=== PATIENT | female | born 1950 | race Caucasian/White ===

== ENCOUNTER 2021-01-02 13:25 | Inpatient (IN) | payer MEDICARE, MEDICAID ==
[~2021-01-02] VITALS: Ht 162.6 cm; Wt 66.8 kg
[2021-01-02] MEDS ORDERED: dexamethasone 4mg/ml inj IV ONE (14:50)
[2021-01-02 15:47] LABS: EOSINOPHILS % (AUTO) 0 % (0-6); HEMATOCRIT 49.8 % (35.0-45.0); LYMPHOCYTES # (AUTO) 0.7 X10'3 (1.1-4.8); MEAN PLATELET VOLUME 9.6 FL (7.4-10.4); MONOCYTES # (AUTO) 0.5 X10'3 (0-0.9); WHITE BLOOD COUNT 5.6 X10'3 (4.5-11.0)
[2021-01-02 15:49] LABS: BASOPHILS % (AUTO) 0.2 % (0-1); HEMOGLOBIN 17.3 g/dl (12.0-16.0); LYMPHOCYTES % (AUTO) 12.8 % (21-51); MEAN CORPUSCULAR HEMOGLOBIN 30.5 PG (27.0-31.0); MEAN CORPUSCULAR HGB CONC 34.7 g/dL (33.0-36.5); MEAN CORPUSCULAR VOLUME 87.8 FL (78-98); MONOCYTES % (AUTO) 9.5 % (2-12); NEUTROPHILS # (AUTO) 4.3 X10'3 (1.8-7.7); NEUTROPHILS % (AUTO) 77.5 % (42-75); PLATELET COUNT 143 X10'3 (140-440); RED BLOOD COUNT 5.68 X10'6 (4.20-5.60); RED CELL DISTRIBUTION WIDTH 14.4 % (11.5-14.5)
[2021-01-02 15:55] LABS: D-DIMER 2.79 MG/L FEU (0-0.50)
[2021-01-02 16:12] LABS: ALANINE AMINOTRANSFERASE 45 U/L (12-78); ALBUMIN 3.1 G/DL (3.4-5.0); ALBUMIN/GLOBULIN RATIO 0.8 (1.1-1.5); ALKALINE PHOSPHATASE 100 IU/L (46-116); ANION GAP 15 (8-16); ASPARTATE AMINO TRANSFERASE 99 U/L (10-37); BILIRUBIN,TOTAL 0.4 MG/DL (0.1-1.0); BLOOD UREA NITROGEN 24 MG/DL (7-18); BUN/CREATININE RATIO 22.6 (6.6-38.0); CHLORIDE 94 MMOL/L (99-107); CREATININE 1.06 MG/DL (0.40-0.90); GLUCOSE 120 MG/DL (70-104); SODIUM 127 MMOL/L (135-145); TOTAL CARBON DIOXIDE 18.5 MMOL/L (24-32); TOTAL PROTEIN 7.2 G/DL (6.4-8.2); eGFR 51 ML/MIN
[2021-01-02 16:17] LABS: C-REACTIVE PROTEIN 4.06 MG/DL (0.0-0.5); LACTATE DEHYDROGENASE 820 U/L (81-234)
[2021-01-02] MEDS ORDERED: iohexol 350MG/ML 100ml bottle IV ONE (16:46)
[2021-01-02] MEDS ORDERED: REMDESIVIR INJ 200 MG in normal saline 100ml IV soln 60 ML IV ONE (18:16)
[2021-01-02] MEDS ORDERED: temazepam 15mg capsule PO PRN (21:00)
[2021-01-02] MEDS ORDERED: normal saline 1000ml 1,000 ML IV ONE (21:05)
[2021-01-02] MEDS ORDERED: magnesium hydroxide 30ml (MOM) UD suspension PO PRN (22:20)
[2021-01-02] MEDS ORDERED: HYDROmorphone inj. 0.5 MG/0.5 ML DISP.SYRIN IV PRN (22:20)
[2021-01-02] MEDS ORDERED: diphenhydrAMINE 25mg capsule PO PRN (22:20)
[2021-01-02] MEDS ORDERED: ondansetron/PF 4mg/2ml inj IV PRN (22:20)
[2021-01-02] MEDS ORDERED: acetaminophen 650mg rectal suppository RC PRN (22:20)
[2021-01-02] MEDS ORDERED: acetaminophen 325mg tablet PO PRN ×2 (22:20)
[2021-01-02] MEDS ORDERED: ondansetron 4mg rapidly disintigrating tab PO PRN (22:20)
[2021-01-02] MEDS ORDERED: diphenhydrAMINE 50 mg/ml inj IV PRN (22:20)
[2021-01-02] MEDS ORDERED: morphine 2 MG/ML inj. syringe IV PRN ×2 (22:20)
[2021-01-02] MEDS ORDERED: mag hydrox/Alum hydrox/simeth 30ml oral suspension PO PRN (22:20)
[2021-01-02] MEDS ORDERED: HYDROcodone/acetaminophen 10/325mg tab PO PRN (22:20)
[2021-01-02] MEDS ORDERED: bisacodyl 10mg suppository rectal RC PRN (22:20)
[2021-01-02] MEDS ORDERED: HYDROcodone/acetaminophen 5mg/325mg tablet PO PRN (22:20)
[2021-01-02] MEDS ORDERED: ALBUTEROL INHALER 1 PUFF/90 MCG INHALER IH PRN (22:25)
[2021-01-02] MEDS ORDERED: NO HOME MEDS PO (22:28)
[2021-01-02 22:43] LABS: HEMOGLOBIN A1C 5.9 % (4.5-6.2)
[2021-01-02 22:52] LABS: CREATINE KINASE 316 U/L (26-192); LIPASE 469 U/L (73-393); MAGNESIUM 1.9 MG/DL (1.5-2.4); PHOSPHORUS 2.3 MG/DL (2.3-4.5)
[2021-01-03] MEDS: normal saline 1000ml 1,000 ML IV SCH ×2 (00:09→11:45)
[2021-01-03 04:35] LABS: BASOPHILS % (AUTO) 0.4 % (0-1); EOSINOPHILS % (AUTO) 0 % (0-6); HEMATOCRIT 45.9 % (35.0-45.0); LYMPHOCYTES # (AUTO) 0.5 X10'3 (1.1-4.8); MEAN CORPUSCULAR VOLUME 90.4 FL (78-98); MONOCYTES # (AUTO) 0.3 X10'3 (0-0.9); NEUTROPHILS # (AUTO) 1.2 X10'3 (1.8-7.7); RED BLOOD COUNT 5.08 X10'6 (4.20-5.60); WHITE BLOOD COUNT 2.1 X10'3 (4.5-11.0)
[2021-01-03 04:37] LABS: HEMOGLOBIN 15.3 g/dl (12.0-16.0); LYMPHOCYTES % (AUTO) 24.4 % (21-51); MEAN CORPUSCULAR HEMOGLOBIN 30.1 PG (27.0-31.0); MEAN CORPUSCULAR HGB CONC 33.3 g/dL (33.0-36.5); MEAN PLATELET VOLUME 9.4 FL (7.4-10.4); MONOCYTES % (AUTO) 16.1 % (2-12); NEUTROPHILS % (AUTO) 59.1 % (42-75); PLATELET COUNT 126 X10'3 (140-440)
[2021-01-03 04:45] LABS: ALANINE AMINOTRANSFERASE 44 U/L (12-78); ALBUMIN 2.5 G/DL (3.4-5.0); ALBUMIN/GLOBULIN RATIO 0.7 (1.1-1.5); ALKALINE PHOSPHATASE 91 IU/L (46-116); ANION GAP 12 (8-16); ASPARTATE AMINO TRANSFERASE 78 U/L (10-37); BILIRUBIN,TOTAL 0.3 MG/DL (0.1-1.0); BLOOD UREA NITROGEN 29 MG/DL (7-18); BUN/CREATININE RATIO 29.6 (6.6-38.0); CALCIUM 7.4 MG/DL (8.5-10.1); CHLORIDE 100 MMOL/L (99-107); CHOL/HDL RATIO 3.7 (0.00-4.99); CHOLESTEROL 84 MG/DL (0-200); CREATININE 0.98 MG/DL (0.40-0.90); GLUCOSE 128 MG/DL (70-104); HDL CHOLESTEROL 23 MG/DL (35-60); LDL CHOLESTEROL 45 MG/DL (50-100); PARTIAL THROMBOPLASTIN TIME 31 SECONDS (22-32); POTASSIUM 3.8 MMOL/L (3.5-5.1); SODIUM 134 MMOL/L (135-145); TOTAL CARBON DIOXIDE 21.9 MMOL/L (24-32); TOTAL PROTEIN 6.2 G/DL (6.4-8.2); TRIGLYCERIDES 102 MG/DL (20-135); eGFR 56 ML/MIN
[2021-01-03 05:15] LABS: TOTAL CELLS COUNTED 100
[2021-01-03 05:16] LABS: GIANT PLATELET FEW; PLATELET ESTIMATE DECREASED
--- NOTE | 2021-01-03 07:30 | NUR ---
Patient in room COVID 06. I have received report from Darlene Rn and had the opportunity to ask questions and assume patient care.
[2021-01-03 08:07] VITALS: BP 121/58
[2021-01-03] MEDS: dexamethasone inj 6 MG in normal saline 50ml IV soln 50 ML IV SCH ×2 (08:55→20:53)
[2021-01-03] MEDS: docusate sod 100mg capsule PO SCH ×2 (08:55→20:53)
[2021-01-03] MEDS: pantoprazole 40mg Tablet.DR PO SCH (08:55)
[2021-01-03] MEDS: enoxaparin 40mg/0.4ml syringe SUBCUT SCH ×2 (08:56→20:53)
[2021-01-03] MEDS: CefTRIAXone/D5W-Rocephin 1gm 50 ML IV SCH (09:52)
[2021-01-03] MEDS: azithromycin/NS 500mg/250ml 250 ML IV SCH (10:25)
[2021-01-03] MEDS: REMDESIVIR INJ 100 MG in normal saline 100ml IV soln 80 ML IV SCH (11:44)
[2021-01-03 12:43] VITALS: BP 102/54
[2021-01-03 15:00] VITALS: BP 101/65
[2021-01-03 18:00] VITALS: BP 98/51
--- NOTE | 2021-01-03 18:32 | NUR ---
Problems reprioritized. Patient report given, questions answered & plan of care reviewed with Eunice GRIJALVA.
--- NOTE | 2021-01-03 18:35 | NUR ---
Patient in room COVID 06. I have received report from VALENTINE Nina and had the opportunity to ask questions and assume patient care. Patient just finished dinner and is resting comfortably on hospital bed, no complaints.
[2021-01-03 22:00] VITALS: BP 99/64
[2021-01-04 02:00] VITALS: BP 102/52
[2021-01-04 06:00] VITALS: BP 99/48
--- NOTE | 2021-01-04 06:20 | NUR ---
Patient in room COVID 06. I have received report from VALENTINE SANCHES and had the opportunity to ask questions and assume patient care.
--- NOTE | 2021-01-04 06:25 | NUR ---
Problems reprioritized. Patient report given, questions answered & plan of care reviewed with VALENTINE Navarro.
--- NOTE | 2021-01-04 06:25 | NUR ---
Patient in room COVID 06. I have received report from VALENTINE SANCHES and had the opportunity to ask questions and assume patient care.
[2021-01-04] MEDS: azithromycin/NS 500mg/250ml 250 ML IV SCH (08:00)
[2021-01-04] MEDS: dexamethasone inj 6 MG in normal saline 50ml IV soln 50 ML IV SCH ×2 (08:00→19:53)
[2021-01-04] MEDS: CefTRIAXone/D5W-Rocephin 1gm 50 ML IV SCH (08:00)
[2021-01-04] MEDS: REMDESIVIR INJ 100 MG in normal saline 100ml IV soln 80 ML IV SCH (09:29)
[2021-01-04] MEDS: pantoprazole 40mg Tablet.DR PO SCH (09:29)
[2021-01-04] MEDS: docusate sod 100mg capsule PO SCH ×3 (09:29→20:00)
[2021-01-04] MEDS: enoxaparin 40mg/0.4ml syringe SUBCUT SCH ×2 (09:30→19:54)
[2021-01-04 09:45] LABS: BASOPHILS % (AUTO) 0.2 % (0-1); EOSINOPHILS % (AUTO) 0 % (0-6)
[2021-01-04 09:46] LABS: ALANINE AMINOTRANSFERASE 54 U/L (12-78); ALBUMIN 2.7 G/DL (3.4-5.0); ALBUMIN/GLOBULIN RATIO 0.7 (1.1-1.5); ALKALINE PHOSPHATASE 88 IU/L (46-116); ANION GAP 11 (8-16); ASPARTATE AMINO TRANSFERASE 82 U/L (10-37); BILIRUBIN,TOTAL 0.3 MG/DL (0.1-1.0); BLOOD UREA NITROGEN 26 MG/DL (7-18); BUN/CREATININE RATIO 27.1 (6.6-38.0); CALCIUM 7.9 MG/DL (8.5-10.1); CHLORIDE 108 MMOL/L (99-107); CREATININE 0.96 MG/DL (0.40-0.90); GLUCOSE 131 MG/DL (70-104); POTASSIUM 3.7 MMOL/L (3.5-5.1); SODIUM 143 MMOL/L (135-145); TOTAL CARBON DIOXIDE 23.8 MMOL/L (24-32); TOTAL PROTEIN 6.6 G/DL (6.4-8.2); eGFR 57 ML/MIN
[2021-01-04 09:48] LABS: HEMATOCRIT 43.8 % (35.0-45.0); HEMOGLOBIN 14.6 g/dl (12.0-16.0); LYMPHOCYTES # (AUTO) 0.5 X10'3 (1.1-4.8); MEAN CORPUSCULAR HEMOGLOBIN 30.3 PG (27.0-31.0); MEAN CORPUSCULAR HGB CONC 33.4 g/dL (33.0-36.5); MEAN CORPUSCULAR VOLUME 90.6 FL (78-98); MEAN PLATELET VOLUME 9.4 FL (7.4-10.4); MONOCYTES # (AUTO) 0.5 X10'3 (0-0.9); NEUTROPHILS # (AUTO) 3.4 X10'3 (1.8-7.7); NEUTROPHILS % (AUTO) 75.8 % (42-75); PLATELET COUNT 180 X10'3 (140-440); RED BLOOD COUNT 4.83 X10'6 (4.20-5.60); WHITE BLOOD COUNT 4.5 X10'3 (4.5-11.0)
[2021-01-04 11:00] VITALS: BP 102/60
[2021-01-04 14:00] VITALS: BP 108/64
--- NOTE | 2021-01-04 19:36 | NUR ---
Problems reprioritized. Patient report given, questions answered & plan of care reviewed with lito valerio.
[2021-01-04 22:00] VITALS: BP 115/73
[2021-01-05 02:00] VITALS: BP 120/70
[2021-01-05 06:00] VITALS: BP 101/60
--- NOTE | 2021-01-05 07:00 | NUR ---
Patient in room ORTHO 4012B. I have received report from VALENTINE Cordero and had the opportunity to ask questions and assume patient care.
[2021-01-05 08:00] LABS: EOSINOPHILS % (AUTO) 0 % (0-6); HEMOGLOBIN 13.4 g/dl (12.0-16.0); LYMPHOCYTES # (AUTO) 0.4 X10'3 (1.1-4.8); MONOCYTES # (AUTO) 0.6 X10'3 (0-0.9); RED CELL DISTRIBUTION WIDTH 14.8 % (11.5-14.5); WHITE BLOOD COUNT 4.3 X10'3 (4.5-11.0)
[2021-01-05 08:02] LABS: BASOPHILS % (AUTO) 0.1 % (0-1); HEMATOCRIT 40.4 % (35.0-45.0); LYMPHOCYTES % (AUTO) 8.9 % (21-51); MEAN CORPUSCULAR HEMOGLOBIN 30.1 PG (27.0-31.0); MEAN CORPUSCULAR HGB CONC 33.1 g/dL (33.0-36.5); MEAN CORPUSCULAR VOLUME 90.8 FL (78-98); MEAN PLATELET VOLUME 9.5 FL (7.4-10.4); MONOCYTES % (AUTO) 13.7 % (2-12); NEUTROPHILS # (AUTO) 3.3 X10'3 (1.8-7.7); NEUTROPHILS % (AUTO) 77.3 % (42-75); PLATELET COUNT 201 X10'3 (140-440); RED BLOOD COUNT 4.44 X10'6 (4.20-5.60)
[2021-01-05 08:14] LABS: ALANINE AMINOTRANSFERASE 70 U/L (12-78); ALBUMIN 2.6 G/DL (3.4-5.0); ALBUMIN/GLOBULIN RATIO 0.8 (1.1-1.5); ALKALINE PHOSPHATASE 92 IU/L (46-116); ANION GAP 13 (8-16); ASPARTATE AMINO TRANSFERASE 90 U/L (10-37); BILIRUBIN,TOTAL 0.4 MG/DL (0.1-1.0); BLOOD UREA NITROGEN 22 MG/DL (7-18); BUN/CREATININE RATIO 32.8 (6.6-38.0); CALCIUM 7.6 MG/DL (8.5-10.1); CHLORIDE 110 MMOL/L (99-107); CREATININE 0.67 MG/DL (0.40-0.90); GLUCOSE 125 MG/DL (70-104); POTASSIUM 3.6 MMOL/L (3.5-5.1); SODIUM 143 MMOL/L (135-145); TOTAL CARBON DIOXIDE 20.5 MMOL/L (24-32); TOTAL PROTEIN 5.8 G/DL (6.4-8.2); eGFR 87 ML/MIN
[2021-01-05] MEDS: dexamethasone inj 6 MG in normal saline 50ml IV soln 50 ML IV SCH ×2 (09:14→20:13)
[2021-01-05] MEDS: docusate sod 100mg capsule PO SCH ×2 (09:17→20:14)
[2021-01-05] MEDS: pantoprazole 40mg Tablet.DR PO SCH (09:18)
[2021-01-05] MEDS: enoxaparin 40mg/0.4ml syringe SUBCUT SCH ×2 (09:20→20:14)
[2021-01-05] MEDS: CefTRIAXone/D5W-Rocephin 1gm 50 ML IV SCH (09:23)
[2021-01-05 10:00] VITALS: BP 120/70
[2021-01-05] MEDS: REMDESIVIR INJ 100 MG in normal saline 100ml IV soln 80 ML IV SCH (10:28)
[2021-01-05] MEDS: azithromycin/NS 500mg/250ml 250 ML IV SCH (12:00)
[2021-01-05 13:06] LABS: PLATELET ESTIMATE NORMAL
[2021-01-05 13:07] LABS: LARGE PLATELETS MODERATE
[2021-01-05 14:00] VITALS: BP 113/62
[2021-01-05 18:00] VITALS: BP 133/73
--- NOTE | 2021-01-05 18:00 | NUR ---
Report received from Cammie GRIJALVA assumed care.
[2021-01-05 22:00] VITALS: BP 153/71
[2021-01-06 02:00] VITALS: BP 167/71
[2021-01-06 06:00] VITALS: BP 146/64
--- NOTE | 2021-01-06 06:34 | NUR ---
Patient in room ORTHO 4012. I have received report from VALENTINE PARKS, and had the opportunity to ask questions and assume patient care.
--- NOTE | 2021-01-06 06:42 | NUR ---
Report to Pam GRIJALVA.
[2021-01-06 07:37] LABS: EOSINOPHILS % (AUTO) 0 % (0-6); HEMOGLOBIN 14.2 g/dl (12.0-16.0); LYMPHOCYTES # (AUTO) 0.6 X10'3 (1.1-4.8); MONOCYTES # (AUTO) 0.8 X10'3 (0-0.9); NEUTROPHILS # (AUTO) 3.2 X10'3 (1.8-7.7); WHITE BLOOD COUNT 4.6 X10'3 (4.5-11.0)
[2021-01-06 07:40] LABS: BASOPHILS % (AUTO) 0.2 % (0-1); HEMATOCRIT 42.8 % (35.0-45.0); LYMPHOCYTES % (AUTO) 13.2 % (21-51); MEAN CORPUSCULAR HGB CONC 33.1 g/dL (33.0-36.5); MEAN CORPUSCULAR VOLUME 90.6 FL (78-98); MONOCYTES % (AUTO) 17.4 % (2-12); NEUTROPHILS % (AUTO) 69.2 % (42-75); PLATELET COUNT 244 X10'3 (140-440); RED BLOOD COUNT 4.72 X10'6 (4.20-5.60); RED CELL DISTRIBUTION WIDTH 14.5 % (11.5-14.5)
[2021-01-06 07:50] LABS: ALANINE AMINOTRANSFERASE 90 U/L (12-78); ALBUMIN 2.8 G/DL (3.4-5.0); ALBUMIN/GLOBULIN RATIO 0.8 (1.1-1.5); ALKALINE PHOSPHATASE 91 IU/L (46-116); ANION GAP 8 (8-16); ASPARTATE AMINO TRANSFERASE 95 U/L (10-37); BILIRUBIN,TOTAL 0.4 MG/DL (0.1-1.0); BLOOD UREA NITROGEN 18 MG/DL (7-18); BUN/CREATININE RATIO 26.5 (6.6-38.0); CALCIUM 7.6 MG/DL (8.5-10.1); CHLORIDE 109 MMOL/L (99-107); CREATININE 0.68 MG/DL (0.40-0.90); GLUCOSE 124 MG/DL (70-104); POTASSIUM 3.7 MMOL/L (3.5-5.1); SODIUM 142 MMOL/L (135-145); TOTAL CARBON DIOXIDE 25.3 MMOL/L (24-32); TOTAL PROTEIN 6.1 G/DL (6.4-8.2); eGFR 85 ML/MIN
[2021-01-06] MEDS: pantoprazole 40mg Tablet.DR PO SCH (09:06)
[2021-01-06] MEDS: enoxaparin 40mg/0.4ml syringe SUBCUT SCH ×2 (09:06→21:08)
[2021-01-06] MEDS: dexamethasone inj 6 MG in normal saline 50ml IV soln 50 ML IV SCH ×2 (09:06→22:27)
[2021-01-06] MEDS: docusate sod 100mg capsule PO SCH ×2 (09:06→21:08)
--- NOTE | 2021-01-06 09:21 | NUR ---
Initial: Pt admit for acute respiratory failure with hypoxia and bilateral viral PNA secondary to COVID-19. Pt currently on a regular diet documented with average 50-75% PO intake not fully meeting estimated nutrient needs. Recommend Ensure High Protein BID to assist with meeting nutrient needs. LBM 01/05, receiving routine bowel care. Will continue to follow and monitor need for further nutrition intervention. Recommendations: 1) Continue regular diet 2) Ensure High Protein BIDLD, pending physician approval in EMR 3) Routine bowel care 4) Scaled weight this admit; weekly scaled weights thereafter Addendum: 01/06/21 at [address] Amended: Links added.
[2021-01-06 09:54] LABS: LARGE PLATELETS MODERATE; PLATELET ESTIMATE NORMAL; TOTAL CELLS COUNTED 100
[2021-01-06] MEDS: REMDESIVIR INJ 100 MG in normal saline 100ml IV soln 80 ML IV SCH (09:58)
[2021-01-06 10:00] VITALS: BP 131/86
[2021-01-06] MEDS: CefTRIAXone/D5W-Rocephin 1gm 50 ML IV SCH (11:42)
[2021-01-06] MEDS: azithromycin/NS 500mg/250ml 250 ML IV SCH (12:22)
[2021-01-06 14:00] VITALS: BP 132/74
[2021-01-06] MEDS: lactose-reduced food (Ensure High Protein) 237ml bottle PO SCH (17:30)
[2021-01-06 18:00] VITALS: BP 143/78
--- NOTE | 2021-01-06 18:36 | NUR ---
Problems reprioritized. Patient report given, questions answered & plan of care reviewed with VALENTINE WARD.
--- NOTE | 2021-01-06 21:14 | NUR ---
SOB when up to BSC. placed humidification on oxygen at 3L. tolerated better.
[2021-01-06 22:00] VITALS: BP 143/78
[2021-01-07 02:00] VITALS: BP 117/72
--- NOTE | 2021-01-07 06:37 | NUR ---
reported to days noted pt resting w/o distress. oxygen status stable at this time.
--- NOTE | 2021-01-07 06:50 | NUR ---
Patient in room ORTHO 4012. I have received report from Evangelina Lozada had the opportunity to ask questions and assume patient care.
[2021-01-07 07:00] VITALS: BP 141/78
--- NOTE | 2021-01-07 07:04 | NUR ---
Patient in room ORTHO 4012. I have received report from Evangelina GRIJALVA and had the opportunity to ask questions and assume patient care.
[2021-01-07 07:27] LABS: EOSINOPHILS % (AUTO) 0 % (0-6); HEMOGLOBIN 14.3 g/dl (12.0-16.0); LYMPHOCYTES # (AUTO) 0.7 X10'3 (1.1-4.8); MONOCYTES # (AUTO) 0.9 X10'3 (0-0.9); WHITE BLOOD COUNT 5.6 X10'3 (4.5-11.0)
[2021-01-07 07:29] LABS: BASOPHILS % (AUTO) 0.3 % (0-1); HEMATOCRIT 43.2 % (35.0-45.0); LYMPHOCYTES % (AUTO) 12.3 % (21-51); MEAN CORPUSCULAR HGB CONC 33.1 g/dL (33.0-36.5); MEAN CORPUSCULAR VOLUME 90.5 FL (78-98); MEAN PLATELET VOLUME 9.4 FL (7.4-10.4); MONOCYTES % (AUTO) 16.6 % (2-12); NEUTROPHILS % (AUTO) 70.8 % (42-75); PLATELET COUNT 276 X10'3 (140-440); RED BLOOD COUNT 4.78 X10'6 (4.20-5.60); RED CELL DISTRIBUTION WIDTH 14.5 % (11.5-14.5)
[2021-01-07] MEDS: lactose-reduced food (Ensure High Protein) 237ml bottle PO SCH ×2 (07:30→17:30)
[2021-01-07 07:56] LABS: ALANINE AMINOTRANSFERASE 79 U/L (12-78); ALBUMIN 2.7 G/DL (3.4-5.0); ALBUMIN/GLOBULIN RATIO 0.9 (1.1-1.5); ALKALINE PHOSPHATASE 98 IU/L (46-116); ANION GAP 7 (8-16); ASPARTATE AMINO TRANSFERASE 61 U/L (10-37); BILIRUBIN,TOTAL 0.5 MG/DL (0.1-1.0); BLOOD UREA NITROGEN 18 MG/DL (7-18); BUN/CREATININE RATIO 32.1 (6.6-38.0); CALCIUM 7.6 MG/DL (8.5-10.1); CHLORIDE 106 MMOL/L (99-107); CREATININE 0.56 MG/DL (0.40-0.90); GLUCOSE 143 MG/DL (70-104); POTASSIUM 3.8 MMOL/L (3.5-5.1); SODIUM 140 MMOL/L (135-145); TOTAL CARBON DIOXIDE 27.3 MMOL/L (24-32); TOTAL PROTEIN 5.8 G/DL (6.4-8.2); eGFR > 90 ML/MIN
[2021-01-07] MEDS ORDERED: azithromycin 250mg tablet PO SCH (08:00)
[2021-01-07] MEDS: enoxaparin 40mg/0.4ml syringe SUBCUT SCH (08:06)
[2021-01-07] MEDS: pantoprazole 40mg Tablet.DR PO SCH (08:07)
[2021-01-07] MEDS: docusate sod 100mg capsule PO SCH (08:07)
[2021-01-07] MEDS: CefTRIAXone/D5W-Rocephin 1gm 50 ML IV SCH (08:08)
[2021-01-07] MEDS: dexamethasone inj 6 MG in normal saline 50ml IV soln 50 ML IV SCH (08:08)
[2021-01-07 08:22] LABS: PLATELET ESTIMATE NORMAL; TOTAL CELLS COUNTED 100
[2021-01-07 11:00] VITALS: BP 147/81
[2021-01-07] MEDS ORDERED: AZIT500T PO (12:32)
[2021-01-07] MEDS ORDERED: PRED10TA23 PO (12:32)
--- NOTE | 2021-01-07 15:20 | NUR ---
O2 Sat at rest on room air:87% If below 89%: Recovery O2 Sat at rest on 4 LPM:_92% via Nasal Canula. No further documentation is necessary. If O2 Sat did not drop below 89% on room air,ambulate patient on room air. O2 Sat while ambulating on room air:84_% Recovery O2 Sat while ambulating on ___LPM:___% No further documentation is necessary. If patient does not drop below 89% while ambulating, he/she does not qualify for home O2.
--- NOTE | 2021-01-07 16:49 | NUR ---
OK to discharge per orders. Patient stable. All belongings were gathered, paperwork were gone over and signed. Medication regiment and teachings completed. Oxygen at bedside ready to go home. All medications sent to pharmacy and educated with pt and family. 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 We will continue to monitor.
--- NOTE | 2021-01-07 18:21 | NUR ---
Problems reprioritized. Patient report given, questions answered & plan of care reviewed with Krysten GRIJALVA.
--- NOTE | 2021-01-07 18:26 | NUR ---
Patient in room ORTHO 4012. I have received report from Briseyda GRIJALVA and had the opportunity to ask questions and assume patient care.
--- NOTE | 2021-01-07 18:36 | NUR ---
Patient ok to discharged per MD orders, patient had all belongings, home O2 sent with patient, tele taken off, PIV removed and patient tolerated procedure well, all DC paperwork sent with pt.
== END 2021-01-07 18:40 | disposition home or self-care (01) | DRG 177 ==
LOC: ER 13:26 → ED HOLD 22:24 → COVID IP 01-03 08:30 → ORTHO 4S 01-04 18:20 → COVID IP 01-04 18:32 → ORTHO 4S 01-04 19:30
PROVIDERS: ADMIT Family Medicine; ATTEND Family Medicine
PROC: XW033E5 Introduction of Remdesivir Anti-infective into Peripheral Vein, Percutaneous Approach, New Technology Group 5 (ICD-10-PCS; principal; 2021-01-02)
PROC: B32T1ZZ Computerized Tomography (CT Scan) of Left Pulmonary Artery using Low Osmolar Contrast (ICD-10-PCS; 2021-01-02)
PROC: B3201ZZ Computerized Tomography (CT Scan) of Thoracic Aorta using Low Osmolar Contrast (ICD-10-PCS; 2021-01-02)
PROC: B32S1ZZ Computerized Tomography (CT Scan) of Right Pulmonary Artery using Low Osmolar Contrast (ICD-10-PCS; 2021-01-02)
DX: U07.1 COVID-19 (principal); J96.01 Acute respiratory failure with hypoxia; J12.82 Pneumonia due to coronavirus disease 2019; E87.1 Hypo-osmolality and hyponatremia; E87.2 Acidosis; N17.9 Acute kidney failure, unspecified; E86.1 Hypovolemia; D75.1 Secondary polycythemia; E86.0 Dehydration; I10 Essential (primary) hypertension; I95.9 Hypotension, unspecified; R00.0 Tachycardia, unspecified; Z87.891 Personal history of nicotine dependence
CPT/HCPCS: 36415; 71045; 71275; 80053; 80061; 82550; 83036; 83615; 83690; 83735; 83880; 84100; 84145; 84443; 85007; 85008; 85025; 85379; 85610; 85730; 86140; 87081; 93005; 96365; 96366; 96375; 99285; G0378; J0456; J0696; J1100; J1650; J7030; Q9967

== ENCOUNTER 2024-09-26 05:59 | Day surgery (SDC) | payer MEDICARE, MEDICAID ==
--- NOTE | 2024-09-19 15:00 | ELECTROCARDIOGRAPH REPORT ---
[facility] Test Date: 2024-09-19 Test Time: 14:56:47 Pat Name: LAKHWINDER CAMARENA Department: [facility]-PRE-OP Patient ID: [id number] Room: Gender: F Triage Clinician: HARSHIL : 1950 Requested By: ELEAZAR ALEGRIA Order Number: [id number] Reading MD: Dr. MAKENNA Arroyo Measurements Intervals [place] Rate: 68 P: 78 [place]: 175 QRS: 76 QRSD: 86 T: 69 QT: 407 QTc: 433 Interpretive Statements Sinus rhythm Ventricular trigeminy Electronically Signed On 09-19-2024 19:06:[address] MAKENNA Arroyo Please click the below link to view image of tracing.
[2024-09-19 15:01] LABS: BASOPHILS # (AUTO) 0.1 X10'3 (0-0.2); BASOPHILS % (AUTO) 0.6 % (0-1); EOSINOPHILS # (AUTO) 0.2 X10'3 (0-0.9); EOSINOPHILS % (AUTO) 1.9 % (0-6); LYMPHOCYTES # (AUTO) 2.7 X10'3 (1.1-4.8); LYMPHOCYTES % (AUTO) 22.9 % (21-51); MEAN CORPUSCULAR HEMOGLOBIN 30.5 PG (27.0-31.0); MEAN CORPUSCULAR HGB CONC 33.8 g/dL (33.0-36.5); MEAN CORPUSCULAR VOLUME 90.2 FL (78-98); MEAN PLATELET VOLUME 9.2 FL (7.4-10.4); MONOCYTES # (AUTO) 0.8 X10'3 (0-0.9); MONOCYTES % (AUTO) 6.8 % (2-12); NEUTROPHILS # (AUTO) 7.9 X10'3 (1.8-7.7); NEUTROPHILS % (AUTO) 67.8 % (42-75); PRE OP HEMOGLOBIN 15.9 g/dL (12.0-16.0); PRE OP PLATELET COUNT 160 X10'3 (140-440); PRE OP WHITE BLOOD COUNT 11.7 10'3 (4.8-10.8); RED BLOOD COUNT 5.21 X10'6 (4.20-5.60); RED CELL DISTRIBUTION WIDTH 14.7 % (11.5-14.5)
[2024-09-19 15:12] LABS: ALKALINE PHOSPHATASE 169 IU/L (46-116); BLOOD UREA NITROGEN 14 MG/DL (7-18); BUN/CREATININE RATIO 14.1 (10.0-20.0); CALCIUM 9.2 MG/DL (8.5-10.1); CHLORIDE 104 MMOL/L (99-107); CREATININE 0.99 MG/DL (0.40-0.90); PRE OP ALT 23 U/L (30-65); PRE OP ANION GAP 9 (8-16); PRE OP AST 21 U/L (10-37); PRE OP BILIRUB, TOTAL 0.6 MG/DL (0.0-1.0); PRE OP GLUCOSE 88 MG/DL (70-104); PRE OP POTASSIUM 3.9 MMOL/L (3.4-5.1); PRE OP SODIUM 141 MMOL/L (135-145); TOTAL CARBON DIOXIDE 28.5 MMOL/L (24-32); eGFR 55 ML/MIN
[2024-09-26] VITALS (10 sets, daily range): BP systolic 116–167; BP diastolic 55–90; PULSE 55–103; RESP 11–22; TEMP 98.5; O2SAT 92–97
[~2024-09-26] VITALS: Ht 165.1 cm; Wt 61.1 kg
[~2024-09-26 05:59] MED LIST: ASPI-1397 PO; ATOR40TA72 PO
[2024-09-26] MEDS: famotidine 20mg tablet PO ONE (06:45)
[2024-09-26] MEDS: ringers solution, lacted 1,000 ML IV SCH ×2 (06:46→10:17)
[2024-09-26] MEDS ORDERED: hydrALAZINE 20mg/ml inj. IV PRN (07:30)
[2024-09-26] MEDS ORDERED: morphine 2 MG/ML inj. syringe IV PRN (07:30)
[2024-09-26] MEDS ORDERED: morphine 4 MG/ML inj SYRINge IV PRN (07:30)
[2024-09-26] MEDS ORDERED: ondansetron/PF 4mg/2ml inj IV PRN (07:30)
[2024-09-26] MEDS ORDERED: HYDROmorphone/PF 0.2 MG/ML SYRINGE IV PRN ×2 (07:30)
[2024-09-26] MEDS ORDERED: proCHLORperazine 10 MG/2 ml inj IV PRN (07:30)
[2024-09-26] MEDS ORDERED: labetalol 20mg/4ml (5mg/ml) syringe IV PRN (07:30)
[2024-09-26] MEDS ORDERED: meperidine/PF 25mg/ml syringe IV PRN (07:30)
[2024-09-26] MEDS ORDERED: fentaNYL/PF 50MCG/1 ML 2ML syringe ONE (07:56)
[2024-09-26] MEDS ORDERED: ondansetron/PF 4mg/2ml inj ONE (08:17)
[2024-09-26] MEDS ORDERED: rocuronium 10mg/ml inj IV ONE (08:17)
[2024-09-26] MEDS ORDERED: midazolam 1 mg/ML 2ml injection ONE (08:17)
[2024-09-26] MEDS ORDERED: LIDOcaine 2% (20mg/ml) 5ml vial ONE (08:17)
[2024-09-26] MEDS ORDERED: propofol inj 20 ML IV ONE (08:17)
[2024-09-26] MEDS ORDERED: dexamethasone sod phosphate 4mg/ml inj. ONE (08:18)
[2024-09-26] MEDS ORDERED: ePHEDrine 50MG/ML INJ. ONE (08:20)
[2024-09-26] MEDS ORDERED: glycopyrrolate 0.2mg/ml inj ONE (09:10)
[2024-09-26] MEDS ORDERED: neostigmine methylsulfate 1 MG/ML 10ml vial ONE (09:10)
[2024-09-26] MEDS: acetaminophen 1,000mg/100ml IV 100 ML IV PRN (09:35)
--- NOTE | 2024-09-26 17:16 | OPERATIVE REPORT ---
DATE OF SURGERY: 09/26/2024 DICTATING PHYSICIAN: Vignesh Manzo MD PROCEDURE: Bronchoscopy. INDICATIONS FOR PROCEDURE: The patient with bilateral pulmonary nodules, both are on the right side, one on the lower lobe and one on the upper lobe. The patient had already labeled the both lesions with a robotic bronchoscopy system. DESCRIPTION OF PROCEDURE: I set up a plan to get into the mass. We started on the lower lobe, so we can avoid atelectasis as much as possible. Navigated the bronchoscope to the right lower lobe area to about less than a centimeter mass, about 8 mm in size and initially there was no signal that was available with the radial ultrasound. So we did a cone beam CT scan and I was able to redirect the catheter into the area. I was able to get into the mass multiple times. We got about four different samples in different areas with fine needle aspiration, transbronchial and also biopsy forceps. I then navigated again to the right upper lobe. The mass was little bit bigger about a centimeter and a half in size. Again the initial navigation did not confirm with a radial ultrasound that I was in the middle of the mass, but I was able to do a cone beam CT scan and recalibrate it and was able to get into the mass. Multiple samples, about four different samples in the area. After that, we switched over to the endobronchial ultrasound bronchoscope. There were some paratracheal lymph nodes and zones 4R, 4L and also 7, 10R and 10L. I already had obtained a BAL on the left upper lobe also. The patient tolerated the procedure well. No complications. Vignesh Manzo MD TID: [id number] RECEIPT: [id number] JOANA/ARLETTE
--- NOTE | 2024-09-30 12:34 | PATHOLOGY REPORT ---
[facility] [address] [place] [address] NON-LOAN COORDINATOR CYTOLOGY REPORT CaseNumber: [id number] Surgeon:Vignesh Manzo M.D. CLINICAL INFORMATION CLINICAL INFORMATION: Two different lesions (swelling, mass, or lumg) left lower lobe and right upper lobe. DIAGNOSIS DIAGNOSIS: A.LUNG, LEFT UPPER LOBE; BIOPSY - RARE ALVEOLAR SPACES AND ABUNDANT FIBROVASCULAR TISSUE WITH FOCAL MIXED ACUTE AND CHRONIC INFLAMMATION, FOCAL FIBROSIS, AND ACUTE VASCULAR CONGESTION AND HEMORRHAGE. - NEGATIVE FOR MALIGNANCY. DIAGNOSIS: B.LUNG, LEFT LOWER LOBE; BIOPSY - BRONCHIAL, SUB-BRONCHIAL, AND ALVEOLAR TISSUE WITH MIXED ACUTE AND CHRONIC INFLAMMATION AND FOCAL FIBROSIS. - NEGATIVE FOR MALIGNANCY. DIAGNOSIS: C.LUNG, RIGHT UPPER LOBE; FINE NEEDLE ASPIRATION - ADEQUATE FOR CYTOLOGIC EVALUATION (LIMITED CELLULARITY). - RARE AGGREGATES OF ATYPICAL APPEARING SQUAMOUS EPITHELIUM. - SEE COMMENT. DIAGNOSIS: D.LUNG, LEFT LOWER LOBE; FINE NEEDLE ASPIRATION - ADEQUATE FOR CYTOLOGIC EVALUATION. - NEGATIVE FOR MALIGNANCY ON CURRENT SPECIMEN. - CILIATED RESPIRATORY EPITHELIAL CELLS WITH FOCAL REACTIVE CHANGES, MUCUS, AND MIXED ACUTE AND CHRONIC INFLAMMATION. DIAGNOSIS: E.LYMPH NODE, STATION 7, 10R, AND 10L; FINE NEEDLE - ADEQUATE FOR CYTOLOGIC EVALUATION. - NEGATIVE FOR MALIGNANCY. - LYMPH NODE PARENCHYMA WITH SMALL GRANULOMAS WITHOUT NECROSIS. - BACKGROUND BENIGN CILIATED RESPIRATORY EPITHELIUM, BRONCHIAL CARTILAGE, AND SUBMUCOSAL GLAND. - HISTOCHEMICAL STAINS NEGATIVE FOR FUNGUS AND MYOBACTERIUM. COMMENT NOTE: As a part of intradepartmental quality tester review, Dr. Kevin Bowie has also reviewed this case (Specimen C) and concurs. NOTE: As a part of intradepartmental quality tester review, Dr. Kevin Bowie has also reviewed this case (Specimen C) and concurs. NOTE: As a part of intradepartmental quality tester review, Dr. Kevin oBwie has also reviewed this case (Specimen C) and concurs. NOTE: As a part of intradepartmental quality tester review, Dr. Kevin Bowie has also reviewed this case (Specimen C) and concurs. NOTE: As a part of intradepartmental quality tester review, Dr. Kevin Bowie has also reviewed this case (Specimen C) and concurs. MICROSCOPIC DESCRIPTION A. LUNG, LEFT UPPER LOBE MICROSCOPIC DESCRIPTION: Microscopic examination is performed on one H&E stained slide. Present is marky ng parenchyma with only focal alveolar spaces and abundant fibrovascular tissue. There is focal mixed acute and chronic inflammation, limited fibrosis, and moderate acute hemorrhage and vascular congest ion. There is no evidence of granulomas, vasculitis, or malignancy. B. LUNG, LEFT LOWER LOBE MICROSCOPIC DESCRIPTION: Microscopic examination is performed on one H&E stained slide. Present is br onchial tissue including ciliated respiratory epithelium with focal reactive epithelial changes, bron chial tissue, and focal alveolar spaces. All of the tissue has mild acute and chronic inflammation pr esent. There is minimal mild acute vascular congestion and hemorrhage. There are focal hemosiderin-la den macrophages within some of the alveolar spaces. There is no evidence of granulomas, vasculitis, o r malignancy. C. LUNG, RIGHT UPPER LOBE MICROSCOPIC DESCRIPTION: Microscopic examination is performed on one Papanicolaou stained double cyto spin slide and one H&E stained cell block slide. The preparation is adequate for cytologic evaluation . Present are only rare groups of atypical-appearing epithelium. Within the background, there is abun dant blood and fibrin. Immunohistochemical stains are completed to attempt to further sub-differentia te the type of atypical-appearing epithelial cells and reported below. P40 ........ POSITIVE CK5/6 ...... POSITIVE TTF-1 ...... RARE POSITIVE Napsin ..... RARE POSITIVE D. LUNG, LEFT LOWER LOBE MICROSCOPIC DESCRIPTION: Microscopic examination is performed on one Papanicolaou stained double cyto spin slide and one H&E stained cell block slide. The preparation is adequate for cytologic evaluation . Present on the cell block preparation are abundant detached ciliated respiratory epithelial cells w ith rare reactive changes. Also present within the background, is mucus, hemosiderin-laden macrophage s, and mixed acute and chronic inflammation. There is no evidence of malignancy on the current specim en. E. LYMPH NODE, STATION 7, 10R, AND 10L MICROSCOPIC DESCRIPTION: Microscopic examination is performed on one Papanicolaou stained double cyto spin slide and one H&E stained cell block slide. The preparation is adequate for cytologic evaluation . Present is lymph node parenchyma with small granulomas without necrosis and anthracotic pigment. In addition, there is respiratory parenchyma including bronchial cartilage, a small submucosal gland, a nd ciliated respiratory epithelium. There is no evidence of malignancy on this specimen. Histochemica l stains for fungus (GMS) and Mycobacterium (AFB) are completed on tissue block E1 and reported below . GMS ...... NEGATIVE AFB ...... NEGATIVE (st) GROSS DESCRIPTION A. LUNG, LEFT UPPER LOBE GROSS DESCRIPTION: Received in a container of formalin labeled with the patient's name, number, and " DEANDRE BX " are two pieces of scales tissue both 0.2 cm submitted entirely as A1.The time at which the spec imen was removed was 0840. The time at which the specimen was placed in formalin was 0840. B. LUNG, LEFT LOWER LOBE GROSS DESCRIPTION: Received in a container of formalin labeled with the patient's name, number, and " LLL BX " are two pieces of scales tissue 0.2 and 0.3 cm submitted entirely as B1.The time at which the s pecimen was removed was not provided. The time at which the specimen was placed in formalin was not p rovided. C. LUNG, RIGHT UPPER LOBE GROSS DESCRIPTION: Received labeled with the patient's name, number, and "RUL FNA" is a 10 mL bottle of cloudy cytostat red. One double cytospin slide and one cell block are prepared. The cell block is submitted as C1. The time at which the specimen is removed is 0853. The time at which the specimen is placed in formalin is 1659. (fc) D. LUNG, LEFT LOWER LOBE GROSS DESCRIPTION: Received labeled with the patient's name, number, and "LLL FNA" is a 12.5 mL bottl e of slightly cloudy cytostat red. One double cytospin slide and one cell block are prepared. The pratibha l block is submitted as D1. The time at which the specimen is removed is 0840. The time at which th e specimen is placed in formalin is 1700. The tissue is scant and may not survive processing. ( fc) E. LYMPH NODE, STATION 7, 10R, AND 10L GROSS DESCRIPTION: Received labeled with the patient's name, number, and "station #7, 10R, 10L" is a 12.5 mL bottle of cloudy cytostat red. One double cytospin slide and one cell block are prepared. The cell block is submitted as E1. The time at which the specimen is removed is 0907. The time at whic h the specimen is placed in formalin is 1705. (fc) Electronically signed by: Arias Akhtar D.O. 09/30/2024 11:59:00 AM
== END 2024-09-26 11:08 | disposition home or self-care (01) ==
LOC: PAS 05:59
PROVIDERS: ATTEND Internal Medicine Critical Care Medicine
DX: R91.8 Other nonspecific abnormal finding of lung field (principal); E78.5 Hyperlipidemia, unspecified; J43.9 Emphysema, unspecified; F12.90 Cannabis use, unspecified, uncomplicated; Z79.899 Other long term (current) drug therapy; Z98.890 Other specified postprocedural states; Z86.0100 Personal history of colon polyps, unspecified; Z79.82 Long term (current) use of aspirin
CPT/HCPCS: 31627; 31628; 31653; 36415; 80053; 82948; 85025; 87015; 87070; 87077; 87116; 87185; 87206; 93005; A4618; A6258; A6402; J0131; J1100; J2003; J2250; J2405; J2704; J2710; J3010; J3490; J7120; Z7506; Z7508; Z7512; Z7610; 31622; 31624; 31625; 31626; 31654; A6449